=== PATIENT | female | born 1945 | race Caucasian/White ===

== ENCOUNTER 2020-05-03 17:56 | Inpatient (IN) | payer MEDICARE, BC ==
[~2020-05-03] VITALS: Ht 165.1 cm; Wt 64.7 kg
[~2020-05-03 17:56] MED LIST: CEPH-37
[2020-05-03 22:06] LABS: Basophils # (auto) 0.1 10 ^3/uL (0-0.2); Eosinophils # (auto) 0 10 ^3/uL (0-0.8); Mean Corpuscular Hemoglobin 27.2 pg (28.0-32.0); Mean Corpuscular Hgb Conc. 31.8 g/dL (32.0-36.0); Monocytes # (auto) 0.7 10 ^3/uL (0-1.3)
[2020-05-03 22:10] LABS: Basophils % (auto) 0.5 % (0.0-2.0); Eosinophils % (auto) 0.1 % (0.0-7.0); Hematocrit 34.7 % (36.0-46.0); Lymphocytes # (auto) 1.2 10 ^3/uL (0.4-5.4); Lymphocytes % (auto) 7.4 % (10.0-50.0); Mean Corpuscular Volume 85.7 fL (80.0-100.0); Monocytes % (auto) 4.1 % (0.0-12.0); Neutrophils # (auto) 14.2 10 ^3/uL (1.6-8.6); Neutrophils % (auto) 87.9 % (37.0-80.0); Platelet Count (auto) 495 10^3/uL (140-450); Red Blood Cells 4.05 10^6/uL (4.0-5.20); Red Cell Distribution Width 16.4 % (11.8-14.3); White Blood Cell 16.2 10^3/uL (4.4-10.8)
[2020-05-03 22:24] LABS: Albumin 3.2 g/dL (3.4-5.0); Calcium 8.8 mg/dL (8.5-10.1); Potassium 4.1 mmol/L (3.5-5.1)
[2020-05-03 22:25] LABS: Lactic Acid w/Reflex 2.3 mmol/L (0.4-2.0)
[2020-05-03 22:32] LABS: BUN/Creatinine Ratio 17.7; Bilirubin, Total 0.3 mg/dL (0.2-1.0); CRP High Sensitivity 5.99 mg/dL (< 0.3); Total Protein 7.3 g/dL (6.4-8.2)
[2020-05-03 22:38] LABS: INR 2.74 (0.9-1.15)
[2020-05-04] VITALS (8 sets, daily range): BP systolic 114–130; BP diastolic 64–97
[2020-05-04] MEDS ORDERED: ONDANSETRON HCL 4 MG/2 ML VIAL IV PRN (00:45)
[2020-05-04] MEDS ORDERED: cefTRIAXone 1GM/50ML D5W 50 ML IV ONE (00:45)
[2020-05-04] MEDS ORDERED: MORPHINE SULFATE 4 MG/ML SYR/VIAL IV PRN (00:45)
[2020-05-04] MEDS ORDERED: SODIUM CHLORIDE 0.9% 1,000 ML IV ONE (00:45)
[2020-05-04] MEDS ORDERED: CLINDAMYCIN 600MG IV 50 ML IV ONE (00:45)
--- NOTE | 2020-05-04 02:35 | NUR ---
MS admit from ER MAMI CHILDRESS admitted to tele/MS after SBAR received. Patient oriented to Jas pierre RN, unit, room, bed, and unit policies regarding patient care and visiting hours. Patient weighed by bedscale and encouraged to call if they need something. All questions and concerns addressed, patient verbalized understanding.
[2020-05-04] MEDS: SODIUM CHLORIDE 0.9% 1,000 ML IV SCH ×2 (02:45→14:05)
[2020-05-04] MEDS ORDERED: WARF5TAB71 PO (03:56)
[2020-05-04] MEDS ORDERED: WARF2.5T39 PO (03:56)
[2020-05-04] MEDS: CLINDAMYCIN 600MG IV 50 ML IV SCH ×3 (06:27→22:00)
[2020-05-04] MEDS: cefTRIAXone 1GM/50ML D5W 50 ML IV SCH (08:32)
--- NOTE | 2020-05-04 08:35 | NUR ---
Patient resting comfortably in bed with no complaint of pain. Scheduled IV abx given per order. Patient stable.
[2020-05-04] MEDS: PANTOPRAZOLE 40 MG/10 ML VIAL INJ IV SCH (10:18)
--- NOTE | 2020-05-04 10:20 | NUR ---
Scheduled IVP medication given per order. Patient stable; resting quietly in bed at this time.
[2020-05-04] MEDS ORDERED: phytonadione 5 MG in SODIUM CHL 0.9% 50 ML IV ONE (11:45)
--- NOTE | 2020-05-04 11:50 | NUR ---
Patient resting comfortably in bed with Dr. Glynn at bedside.
--- NOTE | 2020-05-04 15:08 | NUR ---
Scheduled IV med given per order. Patient stable.
--- NOTE | 2020-05-04 16:00 | NUR ---
Patient resting comfortably in bed with no complaint of pain. Scheduled IV abx given per order. Patient stable.
--- NOTE | 2020-05-04 19:30 | NUR ---
Opening Shift Note Assumed patient care from May CACERES. Patient AOx 4 w/ HOB at 30 degrees. Patient has no s/s of distress or SOB. Patient is sitting in bed w/ bed locked in lowest position. Will continue to monitor.
[2020-05-05] MEDS: SODIUM CHLORIDE 0.9% 1,000 ML IV SCH ×2 (03:27→16:45)
[2020-05-05 05:44] VITALS: BP 141/79
[2020-05-05] MEDS: CLINDAMYCIN 600MG IV 50 ML IV SCH ×3 (06:00→21:05)
[2020-05-05 06:50] LABS: Basophils # (auto) 0.1 10 ^3/uL (0-0.2); Eosinophils # (auto) 0.2 10 ^3/uL (0-0.8); Eosinophils % (auto) 1.8 % (0.0-7.0); Lymphocytes # (auto) 1.1 10 ^3/uL (0.4-5.4); Mean Corpuscular Volume 85.1 fL (80.0-100.0); Monocytes # (auto) 0.7 10 ^3/uL (0-1.3)
[2020-05-05 06:53] LABS: Basophils % (auto) 0.7 % (0.0-2.0); Hematocrit 29.1 % (36.0-46.0); Hemoglobin 9.3 g/dL (12.2-16.2); Lymphocytes % (auto) 12.4 % (10.0-50.0); Mean Corpuscular Hemoglobin 27.1 pg (28.0-32.0); Mean Corpuscular Hgb Conc. 31.9 g/dL (32.0-36.0); Monocytes % (auto) 7.8 % (0.0-12.0); Neutrophils # (auto) 6.9 10 ^3/uL (1.6-8.6); Neutrophils % (auto) 77.3 % (37.0-80.0); Platelet Count (auto) 435 10^3/uL (140-450); Red Blood Cells 3.42 10^6/uL (4.0-5.20); Red Cell Distribution Width 16.2 % (11.8-14.3); White Blood Cell 8.9 10^3/uL (4.4-10.8)
[2020-05-05 07:11] LABS: Potassium 3.7 mmol/L (3.5-5.1)
[2020-05-05 07:12] LABS: INR 1.27 (0.9-1.15); Partial Thromboplastin Time 31.2 sec (23.0-31.2)
[2020-05-05 07:18] LABS: Albumin 2.4 g/dL (3.4-5.0); BUN/Creatinine Ratio 14.3; Bilirubin, Total 0.3 mg/dL (0.2-1.0); Calcium 7.9 mg/dL (8.5-10.1); Total Protein 5.7 g/dL (6.4-8.2)
--- NOTE | 2020-05-05 08:00 | NUR ---
ASSESSMENT NOTE PT IS ALERT ORIENTED X4, RESTING IN BED COMFORTABLY IN LOW NUÑEZ POSITION, ABLE TO SELF REPOSITION , AMBULATE NEEDED, PT HAS LARGE TUMOR MASS, HANGING OUT OF HER RT UPPER ARM ON A SMALL VESSELS, AND A VERY SMALL MASS NOTED AT RT LOWER LEG, PAIN 0/10, CALL LIGHT WITHIN REACH
--- NOTE | 2020-05-05 08:30 | NUR ---
IV insertion IV access obtained, via clean sterile technique by inserting 22 gauge catheter at after attempt(s). IV secured properly. No trauma to site. Patient tolerated procedure well. old iv at left wriest, intact
[2020-05-05 09:00] VITALS: BP 140/79
--- NOTE | 2020-05-05 09:15 | NUR ---
WOUND CARE RT UPPER ARM MASS DRESSING ARE VERY SATURATED WITH LIGHT YELLOW FLUID, A FOUL ODOR NOTED , A MOIST ABD PAD WITH NS APPLIED, SECURED WITH GAUZE, PT TOLERATED WELL
[2020-05-05] MEDS: cefTRIAXone 1GM/50ML D5W 50 ML IV SCH (09:35)
[2020-05-05] MEDS: PANTOPRAZOLE 40 MG/10 ML VIAL INJ IV SCH (09:35)
--- NOTE | 2020-05-05 09:50 | NUR ---
DR RENEE AT BED SIDE , MADE AWARE OF RT LOWER LEG MASS, NEW ORDERS OBTAIN
--- NOTE | 2020-05-05 10:00 | NUR ---
WOUND PHOTO ARE TAKEN FOR RT LOWER LEG MASS
--- NOTE | 2020-05-05 10:30 | NUR ---
WOUND CARE NOTE: WOUND CONSULT ORDERED FOR PATIENT WITH SKIN INTEGRITY ISSUES TO RIGHT UPPER AND LOWER EXTREMITY. WOUND PHOTOS TAKEN UPON ADMIT BY BEDSIDE NURSE FOR REFERENCE. PATIENT ADMITTED TO [facility] WITH DIAGNOSIS OF RIGHT UPPER ARM MASS. CURRENT JACOB SCORE IS 21. PATIENT IS SCHEDULED TO HAVE HER RAISED MASS REMOVED FROM HER RIGHT UPPER ARM TOMORROW WITH DR. BELL. PATIENT HAS ABD AND KERLIX WRAP APPLIED TO COVER AND PROTECT. WILL DEFER ALL WOUND CARE ORDERS IN REGARDS TO HER MASS TO SURGEON AT THIS POINT. NO FURTHER WOUND CARE MONITORING NEEDED AT THIS TIME. Addendum: 05/05/20 at 1707 by Anita Bello RN Amended: Links added.
--- NOTE | 2020-05-05 11:50 | NUR ---
SPOKE WITH DORA CACERES IN OR VERIFY WITH HER IF THE SURGERY TODAY, SAID THAT PER EXTRACORPOREAL CIRCULATION SPECIALIST, PT IS SCHEDULE FOR SURGERY TOMORROW, NEW DIET ORDER OBATIN FROM DR RENEE, DR RENEE AWARE
[2020-05-05 14:05] VITALS: BP 122/86
[2020-05-05 16:55] LABS: Urine Bacteria NONE SEEN /hpf (None Seen); Urine Blood Negative /uL (Negative); Urine Mucus FEW (None Seen); Urine Specific Gravity 1.012 (1.001-1.035); Urine WBC <1 /hpf (0 - 5)
--- NOTE | 2020-05-05 17:00 | NUR ---
PAGE DR BANEGAS TO VERIFY IF HE WANT TO R/O COVID
[2020-05-05 17:37] VITALS: BP 125/82
--- NOTE | 2020-05-05 18:40 | NUR ---
PT CONTINUE STABLE, CONTINUE MONITORING
--- NOTE | 2020-05-05 18:49 | NUR ---
PAGE DR BANEGAS AGAIN
--- NOTE | 2020-05-05 19:30 | NUR ---
Opening Shift Note Assumed care of patient, awake and alert. No S/S of distress/SOB or pain. Instructed on POC and to call for assist PRN, will continue to monitor for changes Q1hr and PRN.
--- NOTE | 2020-05-05 21:06 | NUR ---
Dressing change performed. Dressing was saturated along with kerlix. Abd pad replaced and wrapped with kerlix. Patient tolerated well.
[2020-05-05 23:30] VITALS: BP 137/85
[2020-05-06 05:30] VITALS: BP 149/83
[2020-05-06] MEDS: SODIUM CHLORIDE 0.9% 1,000 ML IV SCH ×2 (05:45→20:29)
[2020-05-06] MEDS: CLINDAMYCIN 600MG IV 50 ML IV SCH ×3 (05:45→21:40)
--- NOTE | 2020-05-06 06:45 | NUR ---
Patient taken down to Pre-op.
[2020-05-06] MEDS ORDERED: ceFAZolin 1GM/50ML 0 ML IV ONE (06:51)
[2020-05-06 07:15] LABS: INR 1.13 (0.9-1.15); Partial Thromboplastin Time 30.3 sec (23.0-31.2)
[2020-05-06] MEDS: LIDOCAINE W/ EPINEPHRINE 1 % INJ 30ML ONE ×2 (07:37→08:56)
[2020-05-06] MEDS ORDERED: fentaNYL CITRATE 100 MCG/2 ML VL ONE (07:48)
[2020-05-06] MEDS ORDERED: PROPOFOL 10 MG/ML 20 ML IV ONE (07:49)
[2020-05-06] MEDS ORDERED: DexAMETHasone SOD PHOS 10MG/1ML VIAL INJ ONE (07:49)
[2020-05-06] MEDS ORDERED: MIDAZOLAM HCL 1MG/1ML-2 ML VIAL ONE (07:49)
--- NOTE | 2020-05-06 09:30 | NUR ---
Received pt from OR, s/p mass removal of back of rt arm, gauze and medipore tape on, dressing has a stain of red discharge, circled the drainage, pt denies any pain or discomfort at this time, pt assisted to restroom and back to bed, will continue to monitor pt.
[2020-05-06] MEDS: cefTRIAXone 1GM/50ML D5W 50 ML IV SCH (09:34)
[2020-05-06] MEDS: PANTOPRAZOLE 40 MG/10 ML VIAL INJ IV SCH (09:35)
[2020-05-06 13:00] VITALS: BP 135/82
--- NOTE | 2020-05-06 13:51 | NUR ---
assessment Patient is a 74 year old female who is alert and oriented. Patients cognitive abilities are intact. Prior to admission patient lived home with her Javier and functioned independently. Patient informed me she is able to care for her own ADLs. Per patient she will return home to her prior living arrangements post discharge and family will transport her home. Patient has a rollator for home use. Patients PCP is Maxine ferguson. Patient feels safe returning home on discharge. Patient may need home health on discharge for Sepsis IV ABX. I informed patient she has a right to speak to a social psychologist regarding all care. I informed patient she has a right to participate in any and all discharge planning. Patient has a POA and advanced directive. Patient verbalized understanding and agreed to discharge plan. Addendum: 05/06/20 at 1354 by Molly ACHARYA Amended: Links added.
--- NOTE | 2020-05-06 14:20 | NUR ---
Assessed pt's rt upper arm dressing, noticed an increased on the draining, circled the new draining on dressing,
--- NOTE | 2020-05-06 14:24 | NUR ---
Called and spoke to Dr. Glynn regarding pt requesting to be d/c today, as per doctor not able to d/c pt, and received orders for CBC and PT/PTT. Pt informed.
[2020-05-06 17:00] VITALS: BP 112/66
--- NOTE | 2020-05-06 20:06 | NUR ---
Opening Shift Note Assumed care of patient, awake and alert. No S/S of distress/SOB or pain. Instructed on POC and to call for assist PRN, will continue to monitor for changes Q1hr and PRN. Bed locked in lowest position, HOB elevated at least 30 degrees, call light is within reach and side rails up x 2.
[2020-05-06 22:00] VITALS: BP 119/83
[2020-05-07] MEDS: CLINDAMYCIN 600MG IV 50 ML IV SCH (05:02)
[2020-05-07 05:13] VITALS: BP 133/78
--- NOTE | 2020-05-07 07:41 | NUR ---
CLOSING NOTE CARE ENDORSED TO DAY SHIFT RN
[2020-05-07 09:00] VITALS: BP 125/76
[2020-05-07] MEDS: SODIUM CHLORIDE 0.9% 1,000 ML IV SCH (09:14)
[2020-05-07] MEDS: PANTOPRAZOLE 40 MG/10 ML VIAL INJ IV SCH (09:14)
[2020-05-07] MEDS: cefTRIAXone 1GM/50ML D5W 50 ML IV SCH (09:14)
[2020-05-07 10:58] LABS: INR 1.06 (0.9-1.15); Partial Thromboplastin Time 25.9 sec (23.0-31.2)
--- NOTE | 2020-05-07 11:52 | NUR ---
Discharge instructions given as ordered. Encourage to follow up with PMD as instructed. All questions and concerns addressed. Patient verbalized understanding. Medication reconciliation form completed and copy given to patient. IV removed with catheter intact, pressure dressing applied. WOUND PICTURE ON RIGHT LOWER EXTREMITIES TAKEN. OPTIFOAM DRESSING APPLIED. PT WAITING FOR LACEMAKER.
[2020-05-07 15:36] LABS: Lymphocytes % (auto) 11.3 % (10.0-50.0); Neutrophils % (auto) 81.5 % (37.0-80.0); White Blood Cell 14.8 10^3/uL (4.4-10.8)
[2020-05-07 15:37] LABS: Basophils % (auto) 0.3 % (0.0-2.0); Eosinophils # (auto) 0 10 ^3/uL (0-0.8); Eosinophils % (auto) 0.1 % (0.0-7.0); Hematocrit 33.7 % (36.0-46.0); Hemoglobin 10.2 g/dL (12.2-16.2); Lymphocytes # (auto) 1.67 10 ^3/uL (0.4-5.4); Mean Corpuscular Volume 89.6 fL (80.0-100.0); Monocytes # (auto) 0.83 10 ^3/uL (0-1.3); Monocytes % (auto) 5.6 % (0.0-12.0); Neutrophils # (auto) 12.02 10 ^3/uL (1.6-8.6); Red Blood Cells 3.76 10^6/uL (4.0-5.20)
[2020-05-07 15:38] LABS: Mean Corpuscular Hemoglobin 27.1 pg (28.0-32.0); Mean Corpuscular Hgb Conc. 30.3 g/dL (32.0-36.0); Red Cell Distribution Width 15.7 % (11.8-14.3)
[2020-05-07 15:39] LABS: Platelet Count (auto) 541 10^3/uL (140-450)
== END 2020-05-07 12:45 | disposition home or self-care (01) | DRG 872 ==
LOC: ER 17:56 → OVERFLOW 17:57 → CENTRAL 05-04 02:35
PROVIDERS: ADMIT Nurse Practitioner; ATTEND Family Medicine
PROC: 0HBBXZZ Excision of Right Upper Arm Skin, External Approach (ICD-10-PCS; principal; 2020-05-06 08:00)
DX: A41.9 Sepsis, unspecified organism (principal); D68.9 Coagulation defect, unspecified; E44.0 Moderate protein-calorie malnutrition; L97.819 Non-pressure chronic ulcer of other part of right lower leg with unspecified severity; Z86.711 Personal history of pulmonary embolism
CPT/HCPCS: 36415; 71045; 73200; 73700; 80053; 81001; 82550; 83605; 85025; 85610; 85652; 85730; 86141; 86850; 86900; 86901; 87040; 96361; 96365; 96367; 96375; A4565; C9113; G0378; J0690; J0696; J1100; J2250; J2704; J3430; J3490

== ENCOUNTER 2021-01-25 11:13 | Inpatient (IN) | payer BC, MEDICARE, OTHER ==
[2021-01-25] VITALS (10 sets, daily range): BP systolic 123–137; BP diastolic 64–88
[~2021-01-25] VITALS: Ht 165.1 cm; Wt 70.6 kg
[~2021-01-25 11:13] MED LIST changes: +WARF2.5T39 PO; +WARF5TAB71 PO
[2021-01-25 13:25] LABS: Basophils # (auto) 0.1 10 ^3/uL (0-0.2); Eosinophils # (auto) 0 10 ^3/uL (0-0.8); Lymphocytes % (auto) 2.8 % (10.0-50.0); Mean Corpuscular Volume 85.9 fL (80.0-100.0); Monocytes # (auto) 1.2 10 ^3/uL (0-1.3)
[2021-01-25 13:26] LABS: Basophils % (auto) 0.4 % (0.0-2.0); Hematocrit 18.8 % (36.0-46.0); Lymphocytes # (auto) 0.6 10 ^3/uL (0.4-5.4); Mean Corpuscular Hemoglobin 27.5 pg (28.0-32.0); Monocytes % (auto) 5.3 % (0.0-12.0); Neutrophils # (auto) 20.7 10 ^3/uL (1.6-8.6); Neutrophils % (auto) 91.5 % (37.0-80.0); Red Blood Cells 2.18 10^6/uL (4.0-5.20); Red Cell Distribution Width 17.8 % (11.8-14.3); White Blood Cell 22.7 10^3/uL (4.4-10.8)
[2021-01-25 13:40] LABS: Albumin 2.4 g/dL (3.4-5.0); Calcium 7.9 mg/dL (8.5-10.1); Potassium 4.2 mmol/L (3.5-5.1)
[2021-01-25 13:41] LABS: INR 2.29 (0.9-1.15); Partial Thromboplastin Time 33.8 sec (23.0-31.2)
[2021-01-25 13:43] LABS: Lactic Acid w/Reflex 2.3 mmol/L (0.4-2.0)
[2021-01-25 13:44] LABS: BUN/Creatinine Ratio 17.8; Bilirubin, Total 0.3 mg/dL (0.2-1.0); Total Protein 5.6 g/dL (6.4-8.2)
[2021-01-25] MEDS ORDERED: cefTRIAXone 1GM/50ML D5W 50 ML IV ONE (13:45)
[2021-01-25] MEDS ORDERED: ACETAMINOPHEN 500 MG TAB PO PRN (15:30)
[2021-01-25] MEDS ORDERED: MORPHINE SULFATE INJECTION 2 MG/ML SYRG IV PRN ×2 (15:30)
[2021-01-25] MEDS ORDERED: HYDROcodone-ACET 5/325MG TAB PO PRN (15:30)
[2021-01-25] MEDS ORDERED: NITROGLYCERIN 0.4 MG SL TAB SL PRN (15:30)
[2021-01-25] MEDS ORDERED: ONDANSETRON HCL 4 MG/2 ML VIAL IV PRN (15:30)
[2021-01-25] MEDS: CLINDAMYCIN 300MG IV 50 ML IV SCH (22:08)
[2021-01-26] VITALS (9 sets, daily range): BP systolic 126–141; BP diastolic 58–76
[2021-01-26 05:31] LABS: Basophils # (auto) 0.2 10 ^3/uL (0-0.2); Eosinophils # (auto) 0 10 ^3/uL (0-0.8); Lymphocytes # (auto) 0.7 10 ^3/uL (0.4-5.4); Mean Corpuscular Volume 87.5 fL (80.0-100.0); Monocytes # (auto) 1.7 10 ^3/uL (0-1.3); Nucleated Red Blood Cells % 0.1 %
[2021-01-26 05:34] LABS: Basophils % (auto) 0.7 % (0.0-2.0); Hematocrit 26.5 % (36.0-46.0); Lymphocytes % (auto) 2.8 % (10.0-50.0); Mean Corpuscular Hemoglobin 29.7 pg (28.0-32.0); Mean Corpuscular Hgb Conc. 33.9 g/dL (32.0-36.0); Neutrophils # (auto) 21.8 10 ^3/uL (1.6-8.6); Neutrophils % (auto) 89.5 % (37.0-80.0); Red Blood Cells 3.03 10^6/uL (4.0-5.20); Red Cell Distribution Width 16.9 % (11.8-14.3); White Blood Cell 24.4 10^3/uL (4.4-10.8)
[2021-01-26 06:00] LABS: Potassium 4.6 mmol/L (3.5-5.1)
[2021-01-26] MEDS: CLINDAMYCIN 300MG IV 50 ML IV SCH ×3 (06:00→21:41)
[2021-01-26 06:16] LABS: Albumin 2.2 g/dL (3.4-5.0); BUN/Creatinine Ratio 14.9; Bilirubin, Total 0.5 mg/dL (0.2-1.0); Calcium 7.7 mg/dL (8.5-10.1); Total Protein 5.4 g/dL (6.4-8.2)
[2021-01-26] MEDS: cefTRIAXone 1GM/50ML D5W 50 ML IV SCH (09:41)
[2021-01-26] MEDS: FAMOTIDINE 20 MG TAB PO SCH (09:41)
[2021-01-26] MEDS: Ensure HIGH Protein Chocolate 8oz Bottle PO SCH ×2 (12:09→18:27)
[2021-01-26 12:10] LABS: Urine Bacteria NONE SEEN /hpf (None Seen); Urine Blood Negative /uL (Negative); Urine Hyaline Cast FEW /lpf (0 - 2); Urine Specific Gravity 1.017 (1.001-1.035); Urine WBC 1 /hpf (0 - 5)
[2021-01-26] MEDS ORDERED: IOHEXOL 300 MG/ML 100ML BOTTLE IJ ONE (13:52)
[2021-01-26] MEDS ORDERED: GADOTERATE MEG 7.5 MMOL/15ml INJ (0.5MMOL/ml) IV ONE (13:55)
[2021-01-26] MEDS ORDERED: PHYTONADIONE (VIT K)10 MG/ML 1ML VIAL SUBCUT ONE (14:45)
[2021-01-27 05:00] VITALS: BP 118/68
[2021-01-27] MEDS: CLINDAMYCIN 300MG IV 50 ML IV SCH ×3 (05:40→21:45)
[2021-01-27 06:23] LABS: Basophils # (auto) 0.1 10 ^3/uL (0-0.2); Eosinophils # (auto) 0 10 ^3/uL (0-0.8); Eosinophils % (auto) 0.1 % (0.0-7.0); Hemoglobin 8.4 g/dL (12.2-16.2); Lymphocytes # (auto) 0.6 10 ^3/uL (0.4-5.4); Lymphocytes % (auto) 2.8 % (10.0-50.0); Monocytes # (auto) 1.9 10 ^3/uL (0-1.3)
[2021-01-27 06:26] LABS: Basophils % (auto) 0.4 % (0.0-2.0); Hematocrit 24.6 % (36.0-46.0); Mean Corpuscular Hemoglobin 29.7 pg (28.0-32.0); Mean Corpuscular Volume 87.3 fL (80.0-100.0); Monocytes % (auto) 8.6 % (0.0-12.0); Neutrophils # (auto) 19.9 10 ^3/uL (1.6-8.6); Neutrophils % (auto) 88.1 % (37.0-80.0); Red Blood Cells 2.82 10^6/uL (4.0-5.20); White Blood Cell 22.5 10^3/uL (4.4-10.8)
[2021-01-27 06:31] LABS: Potassium 4.1 mmol/L (3.5-5.1)
[2021-01-27 06:41] LABS: Calcium 7.5 mg/dL (8.5-10.1)
[2021-01-27 06:48] LABS: INR 1.24 (0.9-1.15); Partial Thromboplastin Time 31.9 sec (23.0-31.2)
[2021-01-27] MEDS: Ensure HIGH Protein Chocolate 8oz Bottle PO SCH ×3 (08:00→18:00)
[2021-01-27 09:00] VITALS: BP 120/79
[2021-01-27] MEDS: cefTRIAXone 1GM/50ML D5W 50 ML IV SCH (09:14)
[2021-01-27] MEDS ORDERED: LIDOCAINE 2%HCL (LOCAL ANESTH.) INJ 20ML MDV ONE (10:52)
[2021-01-27] MEDS: FAMOTIDINE 20 MG TAB PO SCH (11:56)
[2021-01-27 13:00] VITALS: BP 128/76
[2021-01-27 16:33] VITALS: BP 116/64
[2021-01-27 22:23] VITALS: BP 113/67
[2021-01-28 05:09] VITALS: BP 125/70
[2021-01-28] MEDS: CLINDAMYCIN 300MG IV 50 ML IV SCH ×3 (05:40→22:53)
[2021-01-28 05:43] LABS: Basophils # (auto) 0.1 10 ^3/uL (0-0.2); Eosinophils # (auto) 0 10 ^3/uL (0-0.8)
[2021-01-28 05:46] LABS: Basophils % (auto) 0.7 % (0.0-2.0); Eosinophils % (auto) 0.1 % (0.0-7.0); Hematocrit 25.3 % (36.0-46.0); Hemoglobin 8.5 g/dL (12.2-16.2); Lymphocytes # (auto) 0.5 10 ^3/uL (0.4-5.4); Lymphocytes % (auto) 2.8 % (10.0-50.0); Mean Corpuscular Hemoglobin 29.5 pg (28.0-32.0); Mean Corpuscular Hgb Conc. 33.7 g/dL (32.0-36.0); Mean Corpuscular Volume 87.4 fL (80.0-100.0); Monocytes # (auto) 1.5 10 ^3/uL (0-1.3); Monocytes % (auto) 7.7 % (0.0-12.0); Neutrophils # (auto) 17.3 10 ^3/uL (1.6-8.6); Neutrophils % (auto) 88.7 % (37.0-80.0); Red Cell Distribution Width 17.1 % (11.8-14.3); White Blood Cell 19.5 10^3/uL (4.4-10.8)
[2021-01-28 08:15] VITALS: BP 113/72
[2021-01-28] MEDS: Ensure HIGH Protein Chocolate 8oz Bottle PO SCH ×3 (08:16→17:51)
[2021-01-28] MEDS: cefTRIAXone 1GM/50ML D5W 50 ML IV SCH (09:09)
[2021-01-28 09:34] VITALS: BP 113/72
[2021-01-28] MEDS: FAMOTIDINE 20 MG TAB PO SCH (09:34)
[2021-01-28 13:49] VITALS: BP 96/63
[2021-01-28 16:32] VITALS: BP 114/72
[2021-01-28 22:00] VITALS: BP 120/71
[2021-01-29 04:57] LABS: Basophils # (auto) 0.1 10 ^3/uL (0-0.2); Eosinophils # (auto) 0.1 10 ^3/uL (0-0.8); Hemoglobin 8.4 g/dL (12.2-16.2); Lymphocytes # (auto) 0.5 10 ^3/uL (0.4-5.4); Neutrophils # (auto) 13.7 10 ^3/uL (1.6-8.6)
[2021-01-29 05:00] VITALS: BP 128/84
[2021-01-29 05:00] LABS: Basophils % (auto) 0.4 % (0.0-2.0); Eosinophils % (auto) 0.4 % (0.0-7.0); Hematocrit 24.8 % (36.0-46.0); Lymphocytes % (auto) 3.5 % (10.0-50.0); Mean Corpuscular Hemoglobin 29.6 pg (28.0-32.0); Mean Corpuscular Hgb Conc. 33.9 g/dL (32.0-36.0); Mean Corpuscular Volume 87.1 fL (80.0-100.0); Monocytes # (auto) 1.3 10 ^3/uL (0-1.3); Monocytes % (auto) 8.5 % (0.0-12.0); Neutrophils % (auto) 87.2 % (37.0-80.0); Red Blood Cells 2.85 10^6/uL (4.0-5.20); White Blood Cell 15.7 10^3/uL (4.4-10.8)
[2021-01-29 05:12] LABS: Calcium 7.4 mg/dL (8.5-10.1); Potassium 3.8 mmol/L (3.5-5.1)
[2021-01-29] MEDS: CLINDAMYCIN 300MG IV 50 ML IV SCH ×3 (06:16→22:19)
[2021-01-29 08:15] VITALS: BP 122/68
[2021-01-29 09:00] VITALS: BP 122/68
[2021-01-29] MEDS: Ensure HIGH Protein Chocolate 8oz Bottle PO SCH ×3 (09:00→18:11)
[2021-01-29] MEDS: cefTRIAXone 1GM/50ML D5W 50 ML IV SCH (09:09)
[2021-01-29] MEDS: FAMOTIDINE 20 MG TAB PO SCH (09:46)
[2021-01-29 13:00] VITALS: BP 121/70
[2021-01-29 17:27] VITALS: BP 121/79
[2021-01-29 19:35] LABS: Hemoglobin 8.1 g/dL (12.2-16.2)
[2021-01-29 19:36] LABS: Hematocrit 24.3 % (36.0-46.0)
[2021-01-29 22:00] VITALS: BP 128/68
[2021-01-30 04:53] LABS: Basophils # (auto) 0.1 10 ^3/uL (0-0.2); Eosinophils # (auto) 0.1 10 ^3/uL (0-0.8); Hemoglobin 7.9 g/dL (12.2-16.2); Lymphocytes # (auto) 0.6 10 ^3/uL (0.4-5.4); Mean Corpuscular Volume 87.5 fL (80.0-100.0); Red Blood Cells 2.77 10^6/uL (4.0-5.20)
[2021-01-30 04:56] LABS: Basophils % (auto) 0.6 % (0.0-2.0); Eosinophils % (auto) 0.7 % (0.0-7.0); Hematocrit 24.2 % (36.0-46.0); Lymphocytes % (auto) 4.2 % (10.0-50.0); Mean Corpuscular Hemoglobin 28.5 pg (28.0-32.0); Mean Corpuscular Hgb Conc. 32.6 g/dL (32.0-36.0); Monocytes # (auto) 1.3 10 ^3/uL (0-1.3); Monocytes % (auto) 8.8 % (0.0-12.0); Neutrophils # (auto) 12.7 10 ^3/uL (1.6-8.6); Neutrophils % (auto) 85.7 % (37.0-80.0); Red Cell Distribution Width 16.8 % (11.8-14.3); White Blood Cell 14.8 10^3/uL (4.4-10.8)
[2021-01-30 05:00] VITALS: BP 120/69
[2021-01-30 05:11] LABS: Calcium 7.6 mg/dL (8.5-10.1); Potassium 3.8 mmol/L (3.5-5.1)
[2021-01-30] MEDS: CLINDAMYCIN 300MG IV 50 ML IV SCH (05:27)
[2021-01-30] MEDS: Ensure HIGH Protein Chocolate 8oz Bottle PO SCH ×3 (08:48→17:40)
[2021-01-30] MEDS: FAMOTIDINE 20 MG TAB PO SCH (08:48)
[2021-01-30] MEDS: cefTRIAXone 1GM/50ML D5W 50 ML IV SCH (08:48)
[2021-01-30 08:52] VITALS: BP 113/77
[2021-01-30] MEDS: CIPROFLOXACIN HCL 500 MG TAB PO SCH ×2 (11:24→21:34)
[2021-01-30] MEDS ORDERED: PIPERACILLIN-TAZOB 3.375GM 100 ML IV SCH (12:00)
[2021-01-30 13:47] VITALS: BP 128/84
[2021-01-30 16:57] VITALS: BP 119/71
[2021-01-30 21:30] VITALS: BP 140/78
[2021-01-31 05:00] VITALS: BP 142/86
[2021-01-31] MEDS: Ensure HIGH Protein Chocolate 8oz Bottle PO SCH ×2 (08:35→12:20)
[2021-01-31 09:00] VITALS: BP 126/95
[2021-01-31] MEDS: FAMOTIDINE 20 MG TAB PO SCH (11:14)
[2021-01-31] MEDS: CIPROFLOXACIN HCL 500 MG TAB PO SCH (11:14)
[2021-01-31 12:36] VITALS: BP 126/95
[2021-01-31 12:54] VITALS: BP 125/80
== END 2021-01-31 14:40 | disposition home or self-care (01) | DRG 853 ==
LOC: ER 11:13 → TELE 15:18 → TELE-CENTR 18:33
PROVIDERS: ADMIT Nurse Practitioner Acute Care; ATTEND Internal Medicine
PROC: 30230N1 Transfusion of Nonautologous Red Blood Cells into Peripheral Vein, Open Approach (ICD-10-PCS; principal; 2021-01-25)
PROC: 07B63ZX Excision of Left Axillary Lymphatic, Percutaneous Approach, Diagnostic (ICD-10-PCS; 2021-01-27)
DX: A41.9 Sepsis, unspecified organism (principal); J96.00 Acute respiratory failure, unspecified whether with hypoxia or hypercapnia; L03.115 Cellulitis of right lower limb; C78.00 Secondary malignant neoplasm of unspecified lung; D68.9 Coagulation defect, unspecified; E44.0 Moderate protein-calorie malnutrition; D64.89 Other specified anemias; D64.9 Anemia, unspecified; D25.9 Leiomyoma of uterus, unspecified; K59.00 Constipation, unspecified; K76.9 Liver disease, unspecified; N18.9 Chronic kidney disease, unspecified; Z79.01 Long term (current) use of anticoagulants; Z82.49 Family history of ischemic heart disease and other diseases of the circulatory system; Z82.5 Family history of asthma and other chronic lower respiratory diseases; Z85.820 Personal history of malignant melanoma of skin; Z86.711 Personal history of pulmonary embolism; Z20.822 Contact with and (suspected) exposure to COVID-19; R59.9 Enlarged lymph nodes, unspecified; Z68.25 Body mass index [BMI] 25.0-25.9, adult
CPT/HCPCS: 10022; 36415; 70553; 71250; 71260; 73200; 74176; 74177; 77012; 80048; 80053; 81001; 83605; 83735; 85014; 85018; 85025; 85610; 85730; 86850; 86900; 86901; 86920; 87040; 87077; 87081; 87186; 87205; 87426; 93970; 96365; 96367; 99291; G0378; J0696; J3430; J3490

== ENCOUNTER → 2021-02-10 | Outpatient (CLI) | payer OTHER ==
[~2021-02-10] MED LIST changes: -CEPH-37
[2021-02-10 10:11] LABS: Basophils # (auto) 0.2 10 ^3/uL (0-0.2); Basophils % (auto) 0.9 % (0.0-2.0); Eosinophils # (auto) 0.1 10 ^3/uL (0-0.8); Monocytes # (auto) 1.4 10 ^3/uL (0-1.3)
[2021-02-10 10:13] LABS: Eosinophils % (auto) 0.2 % (0.0-7.0); Hematocrit 29.1 % (36.0-46.0); Hemoglobin 9.3 g/dL (12.2-16.2); Lymphocytes # (auto) 0.5 10 ^3/uL (0.4-5.4); Lymphocytes % (auto) 2.6 % (10.0-50.0); Mean Corpuscular Hemoglobin 27.1 pg (28.0-32.0); Mean Corpuscular Volume 84.9 fL (80.0-100.0); Monocytes % (auto) 6.5 % (0.0-12.0); Neutrophils # (auto) 18.8 10 ^3/uL (1.6-8.6); Neutrophils % (auto) 89.8 % (37.0-80.0); Platelet Count (auto) 636 10^3/uL (140-450); Red Blood Cells 3.43 10^6/uL (4.0-5.20); Red Cell Distribution Width 17.8 % (11.8-14.3)
[2021-02-10 10:36] LABS: Albumin 2.2 g/dL (3.4-5.0); Potassium 3.2 mmol/L (3.5-5.1)
[2021-02-10 10:40] LABS: BUN/Creatinine Ratio 21.9; Bilirubin, Total 0.4 mg/dL (0.2-1.0); Total Protein 5.8 g/dL (6.4-8.2)
== END | disposition home or self-care (01) ==
LOC: LAB 09:56
PROVIDERS: ATTEND Internal Medicine
DX: R73.03 Prediabetes (principal)
CPT/HCPCS: 36415; 80053; 83036; 84443; 85025

== ENCOUNTER → 2021-02-28 | Outpatient (CLI) | payer OTHER ==
[2021-02-28 13:40] LABS: Hemoglobin 8.8 g/dL (12.2-16.2); Mean Corpuscular Volume 81.9 fL (80.0-100.0)
[2021-02-28 13:41] LABS: Hematocrit 27.2 % (36.0-46.0); Mean Corpuscular Hemoglobin 26.5 pg (28.0-32.0); Mean Corpuscular Hgb Conc. 32.4 g/dL (32.0-36.0); Red Blood Cells 3.32 10^6/uL (4.0-5.20); Red Cell Distribution Width 18.1 % (11.8-14.3); White Blood Cell 21.5 10^3/uL (4.4-10.8)
[2021-02-28 14:25] LABS: Platelet Count (auto) 751 10^3/uL (140-450)
[2021-02-28 14:26] LABS: Albumin 2.1 g/dL (3.4-5.0); Basophils % (manual) 0 (0.0-2.0); Blast Cells 0; Calcium 7.7 mg/dL (8.5-10.1); Metamyelocytes % 0; Potassium 3.8 mmol/L (3.5-5.1); Promyelocytes % 0; Reactive Lymphocytes 0
[2021-02-28 14:30] LABS: Bilirubin, Total 0.2 mg/dL (0.2-1.0); Total Protein 5.4 g/dL (6.4-8.2)
[2021-02-28 14:38] LABS: Thyroid Stimulating Hormone 11.2 uIU/mL (0.358-3.74)
[2021-02-28 16:28] LABS: Band Neutrophils % (manual) 6; Eosinophils % (manual) 1 (0-7); Lymphocytes % (manual) 1 (10.0-50.0); Monocytes % (manual) 2 (0-12); Myelocytes % 1
[2021-03-01 15:51] LABS: Basophils # (auto) 0.1 10 ^3/uL (0-0.2); Basophils % (auto) 0.6 % (0.0-2.0); Eosinophils # (auto) 0.1 10 ^3/uL (0-0.8); Monocytes # (auto) 1.3 10 ^3/uL (0-1.3); Neutrophils # (auto) 16.5 10 ^3/uL (1.6-8.6); White Blood Cell 18.8 10^3/uL (4.4-10.8)
[2021-03-01 15:52] LABS: Eosinophils % (auto) 0.3 % (0.0-7.0); Hematocrit 26.8 % (36.0-46.0); Hemoglobin 8.8 g/dL (12.2-16.2); Lymphocytes # (auto) 0.7 10 ^3/uL (0.4-5.4); Mean Corpuscular Hemoglobin 26.9 pg (28.0-32.0); Mean Corpuscular Volume 81.3 fL (80.0-100.0); Monocytes % (auto) 7.1 % (0.0-12.0); Platelet Count (auto) 731 10^3/uL (140-450); Red Blood Cells 3.29 10^6/uL (4.0-5.20); Red Cell Distribution Width 18.2 % (11.8-14.3)
== END | disposition home or self-care (01) ==
LOC: LAB 13:20
PROVIDERS: ATTEND Internal Medicine
DX: C43.9 Malignant melanoma of skin, unspecified (principal); R73.03 Prediabetes; D64.9 Anemia, unspecified
CPT/HCPCS: 36415; 80053; 83615; 84436; 84439; 84443; 85007; 85025; 85027; 85049

== ENCOUNTER 2021-03-08 12:23 | Inpatient (IN) | payer OTHER ==
[~2021-03-08] VITALS: Ht 165.1 cm; Wt 72.3 kg
[2021-03-08] MEDS ORDERED: HYDROcodone-ACET 5/325MG TAB PO PRN (14:15)
[2021-03-08] MEDS ORDERED: NITROGLYCERIN 0.4 MG SL TAB SL PRN (14:15)
[2021-03-08] MEDS ORDERED: ONDANSETRON HCL 4 MG/2 ML VIAL IV PRN (14:15)
[2021-03-08] MEDS ORDERED: DOCUSATE SOD 100 MG CAP PO PRN (14:15)
[2021-03-08] MEDS ORDERED: ALBUTEROL SULF 2.5 MG/0.5ML(0.5%) NEB SOLN NEB PRN (14:15)
[2021-03-08] MEDS ORDERED: MORPHINE SULF INJ 2 MG/ML SYRINGE 1ML IV PRN ×2 (14:15)
[2021-03-08] MEDS ORDERED: IPRATROPIUM BROM 0.5 MG/2.5ML INH SOL NEB PRN (14:15)
[2021-03-08] MEDS ORDERED: ACETAMINOPHEN 500 MG TAB PO PRN (14:15)
[2021-03-08 14:54] LABS: INR 2.1 (0.9-1.15); Partial Thromboplastin Time 32.7 sec (23.0-31.2)
[2021-03-08 15:01] LABS: Albumin 2.2 g/dL (3.4-5.0); Magnesium 2.3 mg/dL (1.6-2.6); Potassium 4.1 mmol/L (3.5-5.1)
[2021-03-08 15:05] LABS: BUN/Creatinine Ratio 25.5; Bilirubin, Total 0.3 mg/dL (0.2-1.0); Total Protein 5.6 g/dL (6.4-8.2)
[2021-03-08 17:00] VITALS: BP 104/59
[2021-03-08 21:45] VITALS: BP 101/54
[2021-03-09 05:00] VITALS: BP 113/60
[2021-03-09 07:26] LABS: INR 1.66 (0.9-1.15)
[2021-03-09 07:35] VITALS: BP 100/60
[2021-03-09 09:00] VITALS: BP 100/60
[2021-03-09 09:18] LABS: Red Cell Distribution Width 19.4 % (11.8-14.3)
[2021-03-09 09:19] LABS: Hematocrit 25.3 % (36.0-46.0); Mean Corpuscular Hemoglobin 26.4 pg (28.0-32.0); Mean Corpuscular Hgb Conc. 31.7 g/dL (32.0-36.0); Mean Corpuscular Volume 83.4 fL (80.0-100.0); Red Blood Cells 3.03 10^6/uL (4.0-5.20); White Blood Cell 27.5 10^3/uL (4.4-10.8)
[2021-03-09 09:26] LABS: Basophils % (manual) 0 (0.0-2.0); Blast Cells 0; Eosinophils % (manual) 0 (0-7); Lymphocytes % (manual) 0 (10.0-50.0); Metamyelocytes % 0; Myelocytes % 0; Promyelocytes % 0; Reactive Lymphocytes 0
[2021-03-09 09:49] LABS: Band Neutrophils % (manual) 18; Monocytes % (manual) 2 (0-12)
[2021-03-09] MEDS ORDERED: ENOXAPARIN SOD 40 MG/0.4 ML SYRINGE SC SCH (10:00)
[2021-03-09 13:00] VITALS: BP 99/57
[2021-03-09] MEDS: FAMOTIDINE 20 MG TAB PO SCH (13:05)
[2021-03-09] MEDS: HEPARIN DRIP/D5W 100UNITS/ML 250 ML IV SCH (13:53)
[2021-03-09] MEDS ORDERED: CIPROFLOXACIN 400MG/200ML 200 ML IV ONE (15:00)
[2021-03-09 15:23] LABS: INR 1.55 (0.9-1.15); Partial Thromboplastin Time 48.4 sec (23.0-31.2)
[2021-03-09 16:05] LABS: Urine Bacteria FEW /hpf (None Seen); Urine Blood TRACE /uL (Negative); Urine Hyaline Cast MOD /lpf (0 - 2); Urine Mucus FEW (None Seen); Urine Specific Gravity 1.022 (1.001-1.035); Urine WBC 52 /hpf (0 - 5)
[2021-03-09] MEDS: SODIUM CHLORIDE 0.9% 1,000 ML IV SCH ×2 (17:05→22:02)
[2021-03-09 17:32] VITALS: BP 97/52
[2021-03-09 21:43] LABS: INR 1.4 (0.9-1.15); Partial Thromboplastin Time 53.3 sec (23.0-31.2)
[2021-03-09 22:00] VITALS: BP 116/66
[2021-03-09] MEDS ORDERED: CIPROFLOXACIN 400MG/200ML 200 ML IV SCH (22:00)
[2021-03-10 03:42] LABS: INR 1.29 (0.9-1.15); Partial Thromboplastin Time 58.1 sec (23.0-31.2)
[2021-03-10] MEDS: HEPARIN DRIP/D5W 100UNITS/ML 250 ML IV SCH (04:13)
[2021-03-10] MEDS: CIPROFLOXACIN 400MG/200ML 200 ML IV SCH ×2 (04:14→17:01)
[2021-03-10 05:00] VITALS: BP 105/66
[2021-03-10 07:20] LABS: BUN/Creatinine Ratio 30.5; Calcium 7.2 mg/dL (8.5-10.1); Hematocrit 28.9 % (36.0-46.0); Hemoglobin 8.5 g/dL (12.2-16.2); Mean Corpuscular Hemoglobin 25.6 pg (28.0-32.0); Mean Corpuscular Hgb Conc. 29.4 g/dL (32.0-36.0); Mean Corpuscular Volume 87.1 fL (80.0-100.0); Red Blood Cells 3.31 10^6/uL (4.0-5.20); White Blood Cell 27.2 10^3/uL (4.4-10.8)
[2021-03-10 07:22] LABS: Band Neutrophils % (manual) 0; Basophils % (manual) 0 (0.0-2.0); Blast Cells 0; Eosinophils % (manual) 0 (0-7); Metamyelocytes % 0; Myelocytes % 0; Promyelocytes % 0; Reactive Lymphocytes 0; Red Cell Distribution Width 20.2 % (11.8-14.3)
[2021-03-10 07:59] LABS: Lymphocytes % (manual) 1 (10.0-50.0); Monocytes % (manual) 3 (0-12)
[2021-03-10 08:44] VITALS: BP 103/59
[2021-03-10] MEDS: FAMOTIDINE 20 MG TAB PO SCH (09:33)
[2021-03-10 10:34] LABS: INR 1.28 (0.9-1.15); Partial Thromboplastin Time 61.2 sec (23.0-31.2)
[2021-03-10 12:48] VITALS: BP 105/63
[2021-03-10] MEDS ORDERED: ceFAZolin 1GM/50ML 100 ML IV ONE (13:38)
[2021-03-10] MEDS ORDERED: HEPARIN SODIUM (PORCINE) 5000 UNITS/ML 1ML VIAL ONE (13:57)
[2021-03-10] MEDS ORDERED: ceFAZolin 1GM VL ONE (13:57)
[2021-03-10] MEDS ORDERED: LIDOCAINE 1% HCL (LOCAL ANESTH.) INJ 20ML MDV ONE (13:57)
[2021-03-10] MEDS ORDERED: HEPARIN 1,000 UNITS/ml 1ML VIAL ONE (13:58)
[2021-03-10] MEDS ORDERED: LABETALOL HCL 5 MG/ML 4ML SYRINGE IV PRN (14:15)
[2021-03-10] MEDS ORDERED: HYDROmorphone HCL 2 MG/ML VL IV PRN (14:15)
[2021-03-10] MEDS ORDERED: MORPHINE SULFATE 4 MG/ML SYR/VIAL IV PRN (14:15)
[2021-03-10] MEDS ORDERED: MIDAZOLAM HCL 1MG/1ML-2 ML VIAL IV PRN (14:15)
[2021-03-10] MEDS ORDERED: ONDANSETRON HCL 4 MG/2 ML VIAL IV PRN (14:15)
[2021-03-10] MEDS ORDERED: ePHEDrine SULFATE 50 MG/ML AMP IV PRN (14:15)
[2021-03-10] MEDS ORDERED: MEPERIDINE HCL (25 MG/ML) 1ML VIAL ONE (14:26)
[2021-03-10] MEDS ORDERED: MIDAZOLAM HCL 1MG/1ML-2 ML VIAL ONE (14:26)
[2021-03-10] MEDS ORDERED: fentaNYL CITRATE 100 MCG/2 ML VL ONE (14:26)
[2021-03-10] MEDS ORDERED: BUPIVACAINE W/ EPINEPH 0.25% INJ 50ML MDV ONE (14:31)
[2021-03-10] MEDS ORDERED: DexAMETHasone SOD PHOS 10MG/1ML VIAL INJ ONE (14:33)
[2021-03-10] MEDS ORDERED: PROPOFOL 10 MG/ML 20 ML IV ONE (14:33)
[2021-03-10 16:39] VITALS: BP 110/65
[2021-03-10] MEDS: SODIUM CHLORIDE 0.9% 1,000 ML IV SCH (17:01)
[2021-03-10 22:00] VITALS: BP 104/64
[2021-03-11] MEDS: HEPARIN DRIP/D5W 100UNITS/ML 250 ML IV SCH ×2 (00:15→04:48)
[2021-03-11 01:42] LABS: INR 1.27 (0.9-1.15); Partial Thromboplastin Time 57.8 sec (23.0-31.2)
[2021-03-11 05:00] VITALS: BP 114/62
[2021-03-11] MEDS: CIPROFLOXACIN 400MG/200ML 200 ML IV SCH ×2 (05:05→16:51)
[2021-03-11] MEDS: SODIUM CHLORIDE 0.9% 1,000 ML IV SCH (06:22)
[2021-03-11 07:08] LABS: INR 1.26 (0.9-1.15)
[2021-03-11 09:00] VITALS: BP 115/64
[2021-03-11] MEDS: FAMOTIDINE 20 MG TAB PO SCH (10:00)
[2021-03-11 11:44] VITALS: BP 109/63
[2021-03-11 11:59] VITALS: BP 115/64
[2021-03-11] MEDS ORDERED: FUROSEMIDE 40 MG/4 ML VIAL IV ONE (12:15)
[2021-03-11] MEDS ORDERED: IOHEXOL 300 MG/ML 100ML BOTTLE IJ ONE (12:18)
[2021-03-11 17:00] VITALS: BP 108/62
[2021-03-11] MEDS ORDERED: WARFARIN SODIUM 2.5 MG TAB PO ONE (17:00)
[2021-03-11 22:00] VITALS: BP 97/59
[2021-03-12] MEDS: CIPROFLOXACIN 400MG/200ML 200 ML IV SCH ×2 (04:53→18:46)
[2021-03-12 05:33] VITALS: BP 105/63
[2021-03-12 07:18] LABS: Eosinophils # (auto) 0 10 ^3/uL (0-0.8); Eosinophils % (auto) 0.1 % (0.0-7.0); Hematocrit 22.7 % (36.0-46.0); Hemoglobin 7.5 g/dL (12.2-16.2); Lymphocytes # (auto) 0.3 10 ^3/uL (0.4-5.4); Mean Corpuscular Hgb Conc. 32.9 g/dL (32.0-36.0)
[2021-03-12 07:21] LABS: Basophils # (auto) 0.2 10 ^3/uL (0-0.2); Basophils % (auto) 0.9 % (0.0-2.0); Lymphocytes % (auto) 1.7 % (10.0-50.0); Mean Corpuscular Hemoglobin 26.6 pg (28.0-32.0); Mean Corpuscular Volume 80.8 fL (80.0-100.0); Monocytes % (auto) 5.8 % (0.0-12.0); Neutrophils # (auto) 15.7 10 ^3/uL (1.6-8.6); Neutrophils % (auto) 91.5 % (37.0-80.0); Red Cell Distribution Width 19.4 % (11.8-14.3); White Blood Cell 17.2 10^3/uL (4.4-10.8)
[2021-03-12 07:35] LABS: INR 1.35 (0.9-1.15); Partial Thromboplastin Time 29.3 sec (23.0-31.2)
[2021-03-12 07:41] LABS: Albumin 1.5 g/dL (3.4-5.0); Calcium 6.8 mg/dL (8.5-10.1); Magnesium 1.9 mg/dL (1.6-2.6); Potassium 3.8 mmol/L (3.5-5.1)
[2021-03-12 07:46] LABS: BUN/Creatinine Ratio 22.4; Bilirubin, Total 0.3 mg/dL (0.2-1.0); Total Protein 4.5 g/dL (6.4-8.2)
[2021-03-12 09:00] VITALS: BP 111/66
[2021-03-12] MEDS: FAMOTIDINE 20 MG TAB PO SCH (09:51)
[2021-03-12 13:00] VITALS: BP 114/68
[2021-03-12 17:00] VITALS: BP 126/74
[2021-03-12] MEDS ORDERED: WARFARIN SODIUM 2 MG TAB PO ONE (17:00)
[2021-03-12 22:00] VITALS: BP 140/83
[2021-03-13 05:00] VITALS: BP 119/67
[2021-03-13] MEDS: CIPROFLOXACIN 400MG/200ML 200 ML IV SCH (05:35)
[2021-03-13 06:37] LABS: Basophils # (auto) 0.1 10 ^3/uL (0-0.2); Lymphocytes # (auto) 0.3 10 ^3/uL (0.4-5.4)
[2021-03-13 06:41] LABS: Basophils % (auto) 0.6 % (0.0-2.0); Eosinophils # (auto) 0.1 10 ^3/uL (0-0.8); Eosinophils % (auto) 0.3 % (0.0-7.0); Hematocrit 24.4 % (36.0-46.0); Lymphocytes % (auto) 1.6 % (10.0-50.0); Mean Corpuscular Hemoglobin 26.6 pg (28.0-32.0); Mean Corpuscular Hgb Conc. 32.8 g/dL (32.0-36.0); Mean Corpuscular Volume 81.1 fL (80.0-100.0); Monocytes # (auto) 1.4 10 ^3/uL (0-1.3); Monocytes % (auto) 7.3 % (0.0-12.0); Neutrophils % (auto) 90.2 % (37.0-80.0); Red Blood Cells 3.01 10^6/uL (4.0-5.20); Red Cell Distribution Width 19.3 % (11.8-14.3); White Blood Cell 18.8 10^3/uL (4.4-10.8)
[2021-03-13 06:50] LABS: Albumin 1.6 g/dL (3.4-5.0); Calcium 6.9 mg/dL (8.5-10.1); Potassium 3.7 mmol/L (3.5-5.1)
[2021-03-13 06:53] LABS: INR 1.71 (0.9-1.15)
[2021-03-13 06:55] LABS: BUN/Creatinine Ratio 16.9; Bilirubin, Total 0.2 mg/dL (0.2-1.0); Total Protein 4.6 g/dL (6.4-8.2)
[2021-03-13 09:00] VITALS: BP 121/70
[2021-03-13] MEDS: FAMOTIDINE 20 MG TAB PO SCH (10:00)
[2021-03-13 13:00] VITALS: BP 116/67
[2021-03-13 17:00] VITALS: BP 102/63
[2021-03-13] MEDS ORDERED: WARFARIN SODIUM 2 MG TAB PO ONE (17:00)
[2021-03-13] MEDS: CIPROFLOXACIN HCL 500 MG TAB PO SCH (21:29)
[2021-03-13 23:23] VITALS: BP 121/72
[2021-03-14 05:19] VITALS: BP 128/70
[2021-03-14 06:52] LABS: Basophils # (auto) 0.2 10 ^3/uL (0-0.2); Eosinophils # (auto) 0.1 10 ^3/uL (0-0.8); Hemoglobin 8.9 g/dL (12.2-16.2); Lymphocytes # (auto) 0.7 10 ^3/uL (0.4-5.4); Lymphocytes % (auto) 3.3 % (10.0-50.0)
[2021-03-14 06:55] LABS: Basophils % (auto) 0.8 % (0.0-2.0); Eosinophils % (auto) 0.3 % (0.0-7.0); Hematocrit 27.7 % (36.0-46.0); Mean Corpuscular Volume 81.3 fL (80.0-100.0); Monocytes # (auto) 1.8 10 ^3/uL (0-1.3); Monocytes % (auto) 8.7 % (0.0-12.0); Neutrophils # (auto) 18.4 10 ^3/uL (1.6-8.6); Neutrophils % (auto) 86.9 % (37.0-80.0); Red Blood Cells 3.41 10^6/uL (4.0-5.20); Red Cell Distribution Width 19.6 % (11.8-14.3); White Blood Cell 21.1 10^3/uL (4.4-10.8)
[2021-03-14 07:06] LABS: INR 1.89 (0.9-1.15)
[2021-03-14 07:21] LABS: Albumin 1.8 g/dL (3.4-5.0)
[2021-03-14 09:00] VITALS: BP 128/75
[2021-03-14] MEDS: FAMOTIDINE 20 MG TAB PO SCH (10:30)
[2021-03-14] MEDS: CIPROFLOXACIN HCL 500 MG TAB PO SCH ×2 (10:30→21:05)
[2021-03-14 13:00] VITALS: BP 105/60
[2021-03-14 17:00] VITALS: BP 122/76
[2021-03-14] MEDS ORDERED: WARFARIN SODIUM 5 MG TAB PO ONE (17:00)
[2021-03-14 22:00] VITALS: BP 105/62
[2021-03-15 05:00] VITALS: BP 118/71
[2021-03-15 06:16] LABS: INR 2.37 (0.9-1.15); Partial Thromboplastin Time 33.4 sec (23.0-31.2)
[2021-03-15 09:00] VITALS: BP 100/74
[2021-03-15] MEDS: CIPROFLOXACIN HCL 500 MG TAB PO SCH (09:22)
[2021-03-15] MEDS: FAMOTIDINE 20 MG TAB PO SCH (09:23)
[2021-03-15 13:00] VITALS: BP 102/62
[2021-03-15 17:00] VITALS: BP 115/64
[2021-03-15] MEDS ORDERED: WARFARIN SODIUM 1 MG TAB PO ONE (17:00)
[2021-03-15 17:04] VITALS: BP 108/62
== END 2021-03-15 17:55 | disposition home health service (06) | DRG 871 ==
LOC: TELE-WESTW 13:43 → WEST WING 03-13 23:53
PROVIDERS: ADMIT Internal Medicine; ATTEND Internal Medicine
PROC: 02HV33Z Insertion of Infusion Device into Superior Vena Cava, Percutaneous Approach (ICD-10-PCS; 2021-03-10)
PROC: 0JH63WZ Insertion of Totally Implantable Vascular Access Device into Chest Subcutaneous Tissue and Fascia, Percutaneous Approach (ICD-10-PCS; principal; 2021-03-10 14:07)
DX: A41.9 Sepsis, unspecified organism (principal); E43 Unspecified severe protein-calorie malnutrition; I50.31 Acute diastolic (congestive) heart failure; D68.59 Other primary thrombophilia; I82.622 Acute embolism and thrombosis of deep veins of left upper extremity; C78.89 Secondary malignant neoplasm of other digestive organs; D68.9 Coagulation defect, unspecified; N39.0 Urinary tract infection, site not specified; C43.61 Malignant melanoma of right upper limb, including shoulder; D64.9 Anemia, unspecified; I25.10 Atherosclerotic heart disease of native coronary artery without angina pectoris; Z79.01 Long term (current) use of anticoagulants; Z82.5 Family history of asthma and other chronic lower respiratory diseases; Z82.49 Family history of ischemic heart disease and other diseases of the circulatory system; Z85.820 Personal history of malignant melanoma of skin; Z86.711 Personal history of pulmonary embolism; Z86.718 Personal history of other venous thrombosis and embolism; Z87.891 Personal history of nicotine dependence; Z20.822 Contact with and (suspected) exposure to COVID-19
CPT/HCPCS: 36415; 71045; 71260; 74177; 80048; 80053; 81001; 82040; 82565; 83735; 83880; 85007; 85025; 85027; 85049; 85610; 85730; 87426; 93306; 93971; 97116; 97163; G0378; J0690; J1100; J2001; J2250; J2704